=== PATIENT | male | born 1945 | race Caucasian/White ===

== ENCOUNTER 2017-01-18 17:38 | Emergency (ER) | payer MEDICARE, OTHER ==
[~2017-01-18] VITALS: Ht 172.7 cm; Wt 100.0 kg
[~2017-01-18 17:38] MED LIST: [UNRECOGNIZED DRUG - REMARK]
[2017-01-18 17:40] VITALS: Ht 172.7 cm; Wt 100.0 kg
--- OUTSIDE RECORDS SUMMARY | 2017-01-18 17:42 | XMS REPORT ---
Author Author Roxane Flores [facility] eClinicalWorks Address Unknown Phone Unavailable Care Team Providers Care Plastic Mould Maker Name Role Phone Roxane Flores CP Unavailable Allergies, Adverse Reactions, Alerts Substance Reaction Event Type N.K.D.A. Info Not Available Non Drug Allergy Problems Problem Type Condition Code Onset Dates Condition Status Problem Hypercholesterolemia 272.2 Active Problem Hypertension, benign 401.1 Active Problem Depressive disorder, not elsewhere classified 311 Active Problem Hypertension, benign 401.1 Active Assessment Frequency of micturition R35.0 Active Medications Medication Code System Code Instructions Start Date End Date Status Dosage Lisinopril-Hydrochlorothiazide [facility] [address]-38 20-12.5 MG Orally Once a day 1 tablet Fish Oil [facility] [address]-35 1000 MG Orally Once a day 4 capsule Citalopram Hydrobromide [facility] [address]-29 20 MG Orally Once a day May 03, 2015 1/2 tablet for a week then 1 tab Multivitamins [facility] [address]68 Orally as directed Doxazosin Mesylate [facility] [address]-67 1 MG Orally Once a day Sep 28, 2015 1 tablet Lovastatin [facility] [address]-75 20 MG Orally Once a day May 03, 2015 3 tablet with a meal Glucosamine [facility] [address]-77 500 MG Orally Twice every day 1 capsule with a meal Procedures Procedure Coding System Code Date PSA NO REFLEX CPT-4 52981 Sep 28, 2015 TSH CPT-4 98618 Sep 28, 2015 IH CMP CPT-4 41101 Sep 28, 2015 OFFICE VISIT, EST-LOW COMPLEXITY (15 MIN.) CPT-4 19258 Sep 28, 2015 [facility] visit Established Patient CPT-4 G0467 Sep 28, 2015 Vital Signs Date/Time: Sep 28, 2015 Height 69 in Weight 213.0 lbs Temperature 97.7 F Blood Pressure Diastolic 60 mm Hg Blood Pressure Systolic 134 mm Hg Cardiac Monitoring Heart Rate 72 /min BMI 31.45 Index Respiratory Rate 18 /min Results Name Result Date Reference Range Unit Abnormality Flag In House CMP ----Total Protein 7.1 20150928 6.4 - 8.1 G/DL ----Alkaline Phosphatase 67 [id number] 53 - 128 u/L ----Creatinine 1.1 20150928 0.6 - 1.2 mg/DL ----BUN 17 20150928 7 - 22 mg/DL ----Calcium 9.7 20150928 8.0 - 10.3 mg/DL ----Glucose 110 [id number] 73 - 118 mg/DL ----AST 35* 20150928 11 - 38 u/L ----ALT 51* 20150928 10 - 47 u/L ----Albumin 4.0 20150928 3.3 - 5.5 g/DL ----Total Bilirubin 0.9 20150928 0.2 - 1.6 mg/DL ----Sodium 138 20150928 128 - 145 mmol/L ----Potassium 4.8 20150928 3.6 - 5.1 mmol/L ----CO2 26 20150928 18 - 33 mmol/L ----Chloride 97* 20150928 98 - 108 mmol/L Summary Purpose eClinicalWorks Submission
--- OUTSIDE RECORDS SUMMARY | 2017-01-18 17:42 | XMS REPORT ---
Author Author Roxane Flores Organization eClinicalWorks Address Unknown Phone Unavailable Care Team Providers Care Library Services Assistant Name Role Phone Roxane Flores CP Unavailable Allergies No Known Allergies Problems Problem Type Condition Code Onset Dates Condition Status Problem Hypercholesterolemia 272.2 Active Problem Hypertension, benign 401.1 Active Problem Depressive disorder, not elsewhere classified 311 Active Problem Hypertension, benign 401.1 Active Assessment Frequency of micturition R35.0 Active Medications Medication Code System Code Instructions Start Date End Date Status Dosage Citalopram Hydrobromide [facility] [address]-61 20 MG Orally Once a day May 03, 2015 1/2 tablet for a week then 1 tab Fish Oil [facility] [address]-18 1000 MG Orally Once a day 4 capsule Doxazosin Mesylate [facility] [address]-87 1 MG Orally Once a day Sep 28, 2015 1 tablet Multivitamins [facility] [address] Orally as directed Glucosamine [facility] [address]-46 500 MG Orally Twice every day 1 capsule with a meal Lovastatin [facility] [address]-79 20 MG Orally Once a day May 03, 2015 3 tablet with a meal Lisinopril-Hydrochlorothiazide [facility] [address]-17 20-12.5 MG Orally Once a day 1 tablet Procedures Procedure Coding System Code Date URINALYSIS, IN HOUSE CPT-4 75191 Sep 29, 2015 URINE CULTURE CPT-4 36519 Sep 29, 2015 Results No Known Results Summary Purpose eClinicalWorks Submission
--- OUTSIDE RECORDS SUMMARY | 2017-01-18 17:42 | XMS REPORT ---
Author Author Henri Valdez Organization eClinicalWorks Address Unknown Phone Unavailable Care Team Providers Care It Sales Consultant Name Role Phone Henri Valdez CP Unavailable Allergies No Known Allergies Problems Problem Type Condition Code Onset Dates Condition Status Problem Depressive disorder, not elsewhere classified 311 Active Problem Hypercholesterolemia 272.2 Active Problem Essential (primary) hypertension I10 Active Assessment Encounter for dental examination and cleaning without abnormal findings Z01.20 Active Problem Hypertension, benign 401.1 Active Problem Hypertension, benign 401.1 Active Medications Medication Code System Code Instructions Start Date End Date Status Dosage Lovastatin [facility] 43478492514 20MG Orally Once a day 3 tablet with a meal Glucosamine [facility] [address]-67 500 MG Orally Twice every day 1 capsule with a meal Lisinopril [facility] [address]-27 5 MG Orally Once a day Jun 04, 2016 1 tablet Multivitamins [facility] [address] Orally as directed Fish Oil [facility] [address]-97 1000 MG Orally Once a day 4 capsule Citalopram Hydrobromide [facility] [address]-63 20 MG Orally Once a day May 03, 2015 1/2 tablet for a week then 1 tab Doxazosin Mesylate [facility] [address]-53 1 MG Orally Once a day Sep 28, 2015 1 tablet Citalopram Hydrobromide [facility] 91569262045 20MG Orally Once a day 1/ 2 tablet for a week then 1 tab Lovastatin [facility] [address]-14 20 MG Orally Once a day May 03, 2015 3 tablet with a meal Procedures Procedure Coding System Code Date PALLIATVE TX DENTAL PAIN-MINOR PROC CPT-4 D9110 Sep 03, 2016 LTD ORAL EVALUATION - PROBLEM FOCUS CPT-4 D0140 Sep 03, 2016 INTRAORL-PERIAPICAL 1 FILM 84744 CPT-4 D0220 Sep 03, 2016 Results No Known Results Summary Purpose eClinicalWorks Submission
--- OUTSIDE RECORDS SUMMARY | 2017-01-18 17:42 | XMS REPORT ---
Author Author Marva Gonzalez [facility] eClinicalWorks Address Unknown Phone Unavailable Care Team Providers Care Gyroscopic Instrument Mechanic Name Role Phone Marva Gonzalez CP Unavailable Allergies No Known Allergies Problems Problem Type Condition Code Onset Dates Condition Status Problem Depressive disorder, not elsewhere classified 311 Active Problem Hypercholesterolemia 272.2 Active Problem Essential (primary) hypertension I10 Active Assessment Elevated PSA R97.2 Active Problem Hypertension, benign 401.1 Active Problem Hypertension, benign 401.1 Active Medications Medication Code System Code Instructions Start Date End Date Status Dosage Doxazosin Mesylate [facility] [address]-41 1 MG Orally Once a day Sep 28, [address] [facility] [address] Orally as directed Glucosamine [facility] [address]-27 500 MG Orally Twice every day 1 capsule with a meal Lovastatin [facility] [address]-06 20 MG Orally Once a day May 03, 2015 3 tablet with a meal Lovastatin [facility] 75274190206 20MG Orally Once a day 3 tablet with a meal Lisinopril [facility] [address]-63 5 MG Orally Once a day Jun 04, 2016 1 tablet Fish Oil [facility] [address]-06 1000 MG Orally Once a day 4 capsule Citalopram Hydrobromide [facility] [address]-88 20 MG Orally Once a day May 03, 2015 1/2 tablet for a week then 1 tab Procedures Procedure Coding System Code Date PSA NO REFLEX CPT-4 54271 Jun 10, 2016 Results Name Result Date Reference Range Unit Abnormality Flag PSA ----PSA 7.4 [id number] 0.0-4.5 ng/mL H Summary Purpose eClinicalWorks Submission
--- OUTSIDE RECORDS SUMMARY | 2017-01-18 17:42 | XMS REPORT ---
Author Author Marva Gonzalez [facility] eClinicalWorks Address Unknown Phone Unavailable Care Team Providers Care Real Estate Portfolio Manager Name Role Phone Marva Gonzalez CP Unavailable Allergies No Known Allergies Problems Problem Type Condition ICD-9 Code Onset Dates Condition Status Problem Hypercholesterolemia 272.2 Active Problem Hypertension, benign 401.1 Active Problem Depressive disorder, not elsewhere classified 311 Active Assessment Hypercholesterolemia 272.2 Active Assessment Hypertension, benign 401.1 Active Problem Hypertension, benign 401.1 Active Assessment Depressive disorder, not elsewhere classified 311 Active Medications Medication Code System Code Instructions Start Date End Date Status Dosage Citalopram Hydrobromide [facility] [address]-97 20 MG Orally Once a day May 03, 2015 1/2 tablet for a week then 1 tab Lovastatin [facility] [address]-37 40 MG Orally Once a day May 03, 2015 1 tablet with a meal Glucosamine [facility] [address]-03 500 MG Orally Twice every day 1 capsule with a meal Fish Oil [facility] [address]-94 500 MG Orally Once a day 1 capsule Lisinopril-Hydrochlorothiazide [facility] [address]-55 20-12.5 MG Orally Once a day 1 tablet Multivitamins [facility] [address] Orally as directed Procedures Procedure Coding System Code Date TSH CPT-4 45211 May 03, 2015 COMPLETE CBC W/AUTO DIFF WBC CPT-4 43299 May 03, 2015 Results No Known Results Summary Purpose eClinicalWorks Submission
--- OUTSIDE RECORDS SUMMARY | 2017-01-18 17:42 | XMS REPORT ---
Author Author Marva Gonzalez Organization eClinicalWorks Address Unknown Phone Unavailable Care Team Providers Care Supervisor Shop Name Role Phone Marva Gonzalez CP Unavailable Allergies, Adverse Reactions, Alerts Substance Reaction Event Type N.K.D.A. Info Not Available Non Drug Allergy Problems Problem Type Condition ICD-9 Code Onset Dates Condition Status Problem Hypercholesterolemia 272.2 Active Problem Hypertension, benign 401.1 Active Problem Depressive disorder, not elsewhere classified 311 Active Assessment Hypercholesterolemia 272.2 Active Assessment Hypertension, benign 401.1 Active Problem Hypertension, benign 401.1 Active Assessment Depressive disorder, not elsewhere classified 311 Active Medications Medication Code System Code Instructions Start Date End Date Status Dosage Lovastatin [facility] [address]-82 40 MG Orally Once a day May 03, 2015 1 tablet with a meal Citalopram Hydrobromide [facility] [address]-91 20 MG Orally Once a day May 03, 2015 1/2 tablet for a week then 1 tab Fish Oil [facility] [address]-10 500 MG Orally Once a day 1 capsule Glucosamine [facility] [address]-94 500 MG Orally Twice every day 1 capsule with a meal Lisinopril-Hydrochlorothiazide [facility] [address]-77 20-12.5 MG Orally Once a day 1 tablet Multivitamins [facility] 63[address] Orally as directed Procedures Procedure Coding System Code Date OFFICE VISIT, EST-LOW COMPLEXITY (15 MIN.) CPT-4 27212 May 03, 2015 IH CMP CPT-4 97951 May 03, 2015 [facility] visit Established Patient CPT-4 G0467 May 03, 2015 IH LIPID PANEL CPT-4 00810 May 03, 2015 Vital Signs Date/Time: May 03, 2015 Height 69 in Weight 211.5 lbs Temperature 97.9 F Blood Pressure Diastolic 70 mm Hg Blood Pressure Systolic 140 mm Hg Cardiac Monitoring Heart Rate 60 /min BMI 31.23 Index Respiratory Rate 20 /min Results No Known Results Summary Purpose eClinicalWorks Submission
--- OUTSIDE RECORDS SUMMARY | 2017-01-18 17:42 | XMS REPORT | Continuity of Care Document ---
Author Author [facility] Organization [facility] Address Unknown Phone Unavailable Support Name Relationship Address Phone EVANS CARPIO Next Of Kin [address] [place] [address] Unavailable Insurance Providers Payer Name Policy Number Subscriber Name Relationship Auto A Insurance [id number] Ron Carpio 19 Self Medicare [id number] Ron Carpio 19 Self [employer] [facility] [id number] Ron Carpio 19 Self Problems No Known Problems or Medical conditions. Family History History Response Recorded Date/Time HX of Orthopedic Surgeries Y "head surgery" from old [facility] 05/16/13 4:04am Hx Abdominal Surgery Y appy 05/16/13 4:04am HX Cerebrovascular Accident N 05/16/13 4:04am Hx Seizures N 05/16/13 4:04am Hx Congestive Heart Failure N 05/16/13 4:04am Hx Heart Attack N 05/16/13 4:04am Hx Hypertension Y 05/16/13 4:04am Hx Chronic Obstructive Pulmonary Disease (COPD) N 05/16/13 4:04am Hx Diabetes N 05/16/13 4:04am Hx Cancer N 05/16/13 4:04am Hx MRSA N 05/16/13 4:04am HX of Cardiac Surgeries N 05/16/13 4:04am HX of Reproductive Surgeries N 05/16/13 4:04am HX of Endocrine Surgeries N 05/16/13 4:04am HX of Throat Surgery Y 05/16/13 4:04am HX of Neurological Surgeries N 05/16/13 4:04am HX of Genitourinary Surgeries N 05/16/13 4:04am Social History History Response Recorded Date/Time Smoking Status Current every day smoker 05/16/13 4:04am Hx Alcohol Use Y 05/16/13 2:27am Has the pt used tobacco in the last 12 months Y 05/16/13 4:04am Allergies, Adverse Reactions, Alerts Allergen Type Severity Reaction Last Updated No Known Allergies 05/15/13 Medications Medication Dose Units Route Sig Qty Days [Unable To Do] Immunizations Name Given Type Hx Influenza Vaccination Y oct or nov of this year H Hx Pneumococcal Vaccination N H Response Recorded Date/Time Status not known Unknown Results No Known Relevant Diagnostic Tests, Laboratory Data and/or Discharge Summary. Encounters Encounter Location Date/Time Discharged Inpatient [facility] 05/16/13 2:52am
--- OUTSIDE RECORDS SUMMARY | 2017-01-18 17:42 | XMS REPORT ---
Author Author Marva Gonzalez [facility] eClinicalWorks Address Unknown Phone Unavailable Care Team Providers Care Patient Service Associate Name Role Phone Marva Gonzalez CP Unavailable Allergies No Known Allergies Problems Problem Type Condition Code Onset Dates Condition Status Problem Hypercholesterolemia 272.2 Active Problem Hypertension, benign 401.1 Active Problem Depressive disorder, not elsewhere classified 311 Active Problem Hypertension, benign 401.1 Active Medications No Known Medications Results No Known Results Summary Purpose eClinicalWorks Submission
--- OUTSIDE RECORDS SUMMARY | 2017-01-18 17:42 | XMS REPORT ---
Author Author Marva Gonzalez [facility] eClinicalWorks Address Unknown Phone Unavailable Care Team Providers Care Commercial Loan Reviewer Name Role Phone Marva Gonzalez CP Unavailable Allergies No Known Allergies Problems Problem Type Condition Code Onset Dates Condition Status Problem Hypercholesterolemia 272.2 Active Problem Hypertension, benign 401.1 Active Problem Depressive disorder, not elsewhere classified 311 Active Problem Hypertension, benign 401.1 Active Assessment Hypertension, benign 401.1 Active Medications Medication Code System Code Instructions Start Date End Date Status Dosage Lisinopril-Hydrochlorothiazide [facility] [address]-34 20-12.5 MG Orally Once a day *NEEDS APPT BEFORE NEXT REFILL* 1 tablet Results No Known Results Summary Purpose eClinicalWorks Submission
--- OUTSIDE RECORDS SUMMARY | 2017-01-18 17:43 | XMS REPORT ---
Author Author Marva Gonzalez Organization eClinicalWorks Address Unknown Phone Unavailable Care Team Providers Care Paint Prep Technician Name Role Phone Marva Gonzalez CP Unavailable Allergies, Adverse Reactions, Alerts Substance Reaction Event Type N.K.D.A. Info Not Available Non Drug Allergy Problems Problem Type Condition Code Onset Dates Condition Status Assessment Elevated PSA R97.2 Active Problem Depressive disorder, not elsewhere classified 311 Active Problem Hypercholesterolemia 272.2 Active Problem Essential (primary) hypertension I10 Active Assessment Essential (primary) hypertension I10 Active Assessment Dizziness R42 Active Problem Hypertension, benign 401.1 Active Problem Hypertension, benign 401.1 Active Medications Medication Code System Code Instructions Start Date End Date Status Dosage Doxazosin Mesylate [facility] [address]-00 1 MG Orally Once a day Sep 28, 2015 1 tablet Lovastatin [facility] [address]-59 20 MG Orally Once a day May 03, 2015 3 tablet with a meal Lisinopril [facility] [address]-22 5 MG Orally Once a day Jun 04, 2016 1 tablet Glucosamine [facility] [address]-84 500 MG Orally Twice every day 1 capsule with a meal Fish Oil [facility] [address]-64 1000 MG Orally Once a day 4 capsule Citalopram Hydrobromide [facility] [address]-41 20 MG Orally Once a day May 03, 2015 1/2 tablet for a week then 1 tab Multivitamins [facility] [address] Orally as directed Procedures Procedure Coding System Code Date OFFICE VISIT, EST-LOW COMPLEXITY (15 MIN.) CPT-4 58165 Jun 10, 2016 [facility] visit Established Patient CPT-4 G0467 Jun 10, 2016 Vital Signs Date/Time: Jun 10, 2016 Temperature 98.1 F Height 69 in Weight 209.0 lbs Blood Pressure Diastolic 66 mm Hg Blood Pressure Systolic 138 mm Hg Cardiac Monitoring Heart Rate 65 /min BMI 30.86 Index Oximetry 97 % Respiratory Rate 18 /min Results No Known Results Summary Purpose eClinicalWorks Submission
--- OUTSIDE RECORDS SUMMARY | 2017-01-18 17:43 | XMS REPORT ---
Author Author Marva Gonzalez [facility] eClinicalWorks Address Unknown Phone Unavailable Care Team Providers Care Cigar Binder Name Role Phone Marva Gonzalez CP Unavailable Allergies No Known Allergies Problems Problem Type Condition ICD-9 Code Onset Dates Condition Status Problem Hypercholesterolemia 272.2 Active Problem Hypertension, benign 401.1 Active Problem Depressive disorder, not elsewhere classified 311 Active Problem Hypertension, benign 401.1 Active Medications Medication Code System Code Instructions Start Date End Date Status Dosage Fish Oil [facility] [address]-53 1000 MG Orally Once a day 4 capsule Lovastatin [facility] [address]-65 20 MG Orally Once a day May 03, 2015 3 tablet with a meal Results No Known Results Summary Purpose eClinicalWorks Submission
--- OUTSIDE RECORDS SUMMARY | 2017-01-18 17:43 | XMS REPORT ---
Author Author Marva Gonzalez [facility] eClinicalWorks Address Unknown Phone Unavailable Care Team Providers Care Power Wood Sawyer Name Role Phone Marva Gonzalez CP Unavailable Allergies No Known Allergies Problems Problem Type Condition Code Onset Dates Condition Status Problem Depressive disorder, not elsewhere classified 311 Active Problem Hypercholesterolemia 272.2 Active Problem Essential (primary) hypertension I10 Active Assessment Essential (primary) hypertension I10 Active Problem Hypertension, benign 401.1 Active Problem Hypertension, benign 401.1 Active Medications Medication Code System Code Instructions Start Date End Date Status Dosage Lisinopril [facility] [address]-71 5 MG Orally Once a day Jun 04, 2016 1 tablet Results No Known Results Summary Purpose eClinicalWorks Submission
--- OUTSIDE RECORDS SUMMARY | 2017-01-18 17:43 | XMS REPORT ---
Author Author Marva Gonzalez Organization eClinicalWorks Address Unknown Phone Unavailable Care Team Providers Care Surgical Consultant Name Role Phone Marva Gonzalez CP Unavailable Allergies No Known Allergies Problems Problem Type Condition Code Onset Dates Condition Status Problem Hypercholesterolemia 272.2 Active Problem Hypertension, benign 401.1 Active Problem Depressive disorder, not elsewhere classified 311 Active Problem Hypertension, benign 401.1 Active Assessment Essential (primary) hypertension I10 Active Medications Medication Code System Code Instructions Start Date End Date Status Dosage Citalopram Hydrobromide [facility] [address]-14 20 MG Orally Once a day May 03, 2015 1/2 tablet for a week then 1 tab Doxazosin Mesylate [facility] [address]-13 1 MG Orally Once a day Sep 28, 2015 1 tablet Fish Oil [facility] [address]-14 1000 MG Orally Once a day 4 capsule Lovastatin [facility] [address]-83 20 MG Orally Once a day May 03, 2015 3 tablet with a meal Lovastatin [facility] 61411314404 20MG Orally Once a day 3 tablet with a meal Glucosamine [facility] [address]-52 500 MG Orally Twice every day 1 capsule with a meal Multivitamins [facility] [address] Orally as directed Lisinopril [facility] [address]-60 5 MG Orally Once a day Jun 04, 2016 1 tablet Procedures Procedure Coding System Code Date DUMMY CODE FOR NURSE VISIT CPT-4 DUMMY Jun 04, 2016 Vital Signs Date/Time: Jun 04, 2016 Blood Pressure Diastolic 70 mm Hg Blood Pressure Systolic 144 mm Hg Height 69 in Results No Known Results Summary Purpose eClinicalWorks Submission
--- OUTSIDE RECORDS SUMMARY | 2017-01-18 17:43 | XMS REPORT ---
Author Author Marva Gonzalez [facility] eClinicalWorks Address Unknown Phone Unavailable Care Team Providers Care Congressional Representative Name Role Phone Marva Gonzalez CP Unavailable Allergies No Known Allergies Problems Problem Type Condition Code Onset Dates Condition Status Problem Hypercholesterolemia 272.2 Active Problem Hypertension, benign 401.1 Active Problem Depressive disorder, not elsewhere classified 311 Active Assessment Dizziness R42 Active Assessment Hypotension, unspecified hypotension type I95.9 Active Problem Hypertension, benign 401.1 Active Assessment Syncope, unspecified syncope type R55 Active Medications Medication Code System Code Instructions Start Date End Date Status Dosage Doxazosin Mesylate [facility] [address]-72 1 MG Orally Once a day Sep 28, 2015 1 tablet Citalopram Hydrobromide [facility] [address]-24 20 MG Orally Once a day May 03, 2015 1/2 tablet for a week then 1 tab [address] [facility] [address] Orally as directed Glucosamine [facility] [address]-12 500 MG Orally Twice every day 1 capsule with a meal Lovastatin [facility] [address]-83 20 MG Orally Once a day May 03, 2015 3 tablet with a meal Lisinopril-Hydrochlorothiazide [facility] [address]-18 20-12.5 MG Orally Once a day *NEEDS APPT BEFORE NEXT REFILL* 1 tablet Fish Oil [facility] [address]-99 1000 MG Orally Once a day 4 capsule Procedures Procedure Coding System Code Date COMPREHENSIVE METABOLIC PANEL CPT-4 85625 May 13, 2016 TSH CPT-4 38931 May 13, 2016 COMPLETE CBC W/AUTO DIFF WBC CPT-4 69908 May 13, 2016 URINALYSIS, IN HOUSE CPT-4 93189 May 13, 2016 Results Name Result Date Reference Range Unit Abnormality Flag TSH ----TSH 0.91 [id number] 0.35-4.94 uIU/mL eGFR ----eGFR >60 [id number] >60 mL/min CBC With Platelet and Differential ----Absolute Eosinophils 0.09 74164082 0.00-0.50 10*3 ----Absolute Monocytes 0.42 35426894 0.30-1.00 10*3 ----Neutrophils 67 48123089 51-75 % ----Absolute Basophils 0.03 19404218 0.00-0.20 10*3 ----MPV 11.7 44394997 8.8-14.8 fL ----Monocytes 7 60902581 4-11 % ----RDW 12.7 80071041 11.5-14.5 % ----Lymphocytes 24 57810815 20-46 % ----MCHC 35.7 86567510 32.0-36.0 g/dL ----MCH 34.0 13039465 27.0-32.0 pg H ----MCV 95.1 46867193 82.0-99.0 fL ----Immature Granulocytes 0.0 89513761 0.0-1.0 % ----Platelet Count 166 07892702 150-400 K/uL ----Absolute Lymphocytes 1.54 22906080 0.80-3.30 10*3 ----Absolute Neutrophils 4.25 33118712 1.90-7.00 10*3 ----Eosinophils 1 26738425 0-4 % ----Basophils 1 04757907 0-2 % ----WBC 6.3 23634866 4.8-10.8 K/uL ----RBC 4.71 11176729 4.60-6.20 10*6/uL ----HGB 16.0 10240105 14.0-18.0 g/dL ----HCT 44.8 55721105 42.0-52.0 % Comprehensive Metabolic Panel (CMP) ----Chloride 104 10470627 99-111 mEq/L ----Potassium 4.7 84586065 3.5-5.2 mEq/L ----Albumin 4.3 93703172 3.4-4.8 g/dL ----CO2 24 13035770 23-31 mEq/L ----Alkaline Phosphatase 77 72039755 40-150 U/L ----Protein 6.5 34077789 6.0-7.6 g/dL ----Bilirubin Total 0.7 38191006 0.2-1.2 mg/dL ----Anion Gap 10 20160513 3-20 ----Calcium 9.8 90535175 8.9-10.5 mg/dL ----Globulin 2.2 20160513 1.8-4.0 g/dL ----Sodium 138 20160513 135-144 mEq/L ----BUN 14 20160513 8-26 mg/dL ----ALT (SGPT) 47 20160513 0-55 U/L ----AST (SGOT) 34 20160513 5-34 U/L ----Creatinine 0.86 20160513 0.72-1.25 mg/dL ----Glucose 112 17283570 70-99 mg/dL H Summary Purpose eClinicalWorks Submission
--- OUTSIDE RECORDS SUMMARY | 2017-01-18 17:43 | XMS REPORT ---
Author Author Marva Gonzalez [facility] eClinicalWorks Address Unknown Phone Unavailable Care Team Providers Care International Marketing Specialist Name Role Phone Marva Gonzalez CP Unavailable Allergies No Known Allergies Problems Problem Type Condition Code Onset Dates Condition Status Problem Depressive disorder, not elsewhere classified 311 Active Problem Hypercholesterolemia 272.2 Active Problem Essential (primary) hypertension I10 Active Problem Hypertension, benign 401.1 Active Problem Hypertension, benign 401.1 Active Medications No Known Medications Results No Known Results Summary Purpose eClinicalWorks Submission
[2017-01-18] MEDS ORDERED: LOVA20TA3 PO (18:00)
[2017-01-18] MEDS ORDERED: LISI-625 PO (18:00)
[2017-01-18] MEDS ORDERED: DOXA1TAB2 PO (18:02)
[2017-01-18] MEDS ORDERED: CITA20TA9 PO (18:02)
[2017-01-18] MEDS ORDERED: MULT-587 PO (18:03)
[2017-01-18] MEDS ORDERED: GLUC100015 PO (18:03)
[2017-01-18] MEDS ORDERED: FISH1CAP10 PO (18:04)
--- OUTSIDE RECORDS SUMMARY | 2017-01-18 18:17 | XMS REPORT | Continuity of Care Document ---
Author Author [facility] Organization [facility] Address Unknown Phone Unavailable Support Name Relationship Address Phone EVANS CARPIO Next Of Kin [address] [place] [address] Unavailable Insurance Providers Payer Name Policy Number Subscriber Name Relationship Auto A Insurance [id number] Ron Carpio 19 Self Medicare [id number] Ron Carpio 19 Self [facility] [id number] Ron Carpio 19 Self Problems No Known [...] Summary. Encounters Encounter Location Date/Time Discharged Inpatient [facility] 05/16/13 2:52am
--- NOTE | 2017-01-18 18:28 | ERPDOC ---
Departure Disposition Decision Date: Jan 18, 2017 Disposition Decision Time: 20:37 Disposition: 01 DISCHARGED HOME, SELF-CARE Impression Impression Impression: Primary Impression: Scalp laceration Encounter type: initial encounter Qualified Codes: S01.01XA - Laceration without foreign body of scalp, initial encounter Additional Impressions: Abrasion Alcohol intoxication Complication of substance-induced condition: uncomplicated Qualified Codes: F10.120 - Alcohol abuse with intoxication, uncomplicated Severity: Moderate Condition: Improved Seen By: Physician only Referrals: YOUR PHYSICIAN 1 Week Patient Instructions: Concussion (ED), Laceration (ED) Problems/Meds/Labs Reviewed?: Yes Medications reviewed and manag: Yes Additional Instructions: We have repaired your cuts. Keep the cuts clean with soap and water and covered. Use triple antibiotic ointment to keep from getting infected. Take the antibiotics as prescribed. Follow up with your doctor to have your sutures removed in 7-10 days. Keep your scrape clean and covered with vaseline to help with pain and healing. Take naproxen as needed for headaches. Follow up with your doctor. Follow up care ordered?: Yes Mental Status: Alert, Oriented Scripts Clindamycin HCl (Clindamycin HCl) 150 Mg Capsule 1 CAP PO QID for 7 Days, #28 CAP TAKE WITH A FULL GLASS OF WATER TO AVOID ESOPHAGEAL IRRITATION. Prov: FEBRUARYDIANN DO 01/18/17 HPI - Fall/Injury General Chief Complaint: Head Injury Stated Complaint: FALL/ HEAD INJURY Time Seen by Provider: 18:01 Source: patient, family Exam Limitations: no limitations HPI - Fall/Injury Initial Comments 71yo [facility] and arm [facility]. Pt is a chronic, daily drinker. He yelled tonight; found him down with two scalp lacs and an arm abrasion. Pts head hit a scalloped, concrete border of their flower bed. Pt was found half in/half out of the flower bed. Pt is grossly intoxicated. Occurred At: home Onset: Rapid Duration: 1-3 hrs Pain Scale: Now & Worst: 0/10 Severity: mild Injuries/Pain Location: head, upper extremity 1 - Avulsion 2 - Avulsion Context: lost balance Loss of Consciousness: no loss of consciousness Modifying Factors: IMPROVES WITH: cold therapy, immobilization, rest, WORSE WITH: jarring, movement Associated Symptoms: denies symptoms Hx of Similar Symptoms: Yes Allergies: Coded Allergies: No Known Allergies (Unverified , 01/18/17) Past History Past Medical History Metabolic: hypercholesterolemia, hypertension Surgical History General: appendix, tonsils Vaccines Hx Influenza Vaccination: Yes (oct or nov of this year) Hx Pneumococcal Vaccination: No Review of Systems Musculoskeletal General: pain, see HPI Integumentary Skin: lesion (Laceration x2) Neurological General: headache Psychiatric Comments Acutely intoxicated All other Systems All Other Systems: Reviewed and Negative Physical Exam General General Nourishment: well nourished, well developed, appears stated age, no acute distress, adult, obese General Body Habitus: disheveled Vitals and Pain First Documented Vital Signs Date Time Temp Pulse Resp B/P Pulse Ox O2 Delivery O2 Flow Rate FiO2 01/18/17 17:40 98.3 58 15 146/67 96 Room Air Weight: Kilograms: 100.000 Height (feet): 5 Height (inches): 8.00 Triage Pain Scale: RN VS reviewed by Provider: Yes Normal Exams: Eyes: Pupils are PERRLA w/ EOMI, No scleral icterus, irritation ENMT: No facial trauma, nasal exudates, pharyngeal erythema Lymphatic: No lymphadenopathy Integumentary: No rashes, hives, or bruising noted Neurologic: Patient is alert, and oriented Psychiatric: Patient exhibits, appropriate attention Integumentary (brief) Comments Lacerations along forehead as described. Mild abrasion (2x5cm along posterolateral right forearm). Procedures Procedures Performed Procedures Performed: Laceration Repair Laceration/Wound Repair Wound/Laceration Repair #1: Wound Location: head Wound Length (cm): 2.5 Depth, Shape: linear Explored: contaminated Irrigated: saline Prep: chlorasept Anesthesia: 1% Lidocaine c Epi Volume Anesthetic (ccs): 3 Type of Block: local Wound Debrided: moderate Wound Revision?: No Repaired With: Sutures Suture Size: 4:0 Suture Type: ethilon Number of Sutures: 5 Layer Closure?: No Sterile Dressing Applied?: Yes Splint Applied?: No Sling Applied?: No Wound/Laceration Repair #2: Wound Location: head Wound Length (cm): 3 Depth, Shape: tissue avulsed Explored: contaminated Irrigated: saline Prep: chlorasept Anesthesia: 1% Lidocaine c Epi Volume Anesthetic (ccs): 4 Type of Block: local Wound Debrided: moderate Wound Revision?: No Repaired With: Sutures Suture Size: 4:0 Suture Type: ethilon Number of Sutures: 4 Layer Closure?: No Sterile Dressing Applied?: Yes Splint Applied?: No Sling Applied?: No Progress Results/Orders Orders Procedure Category Date Status Time Cbc W/Auto LAB 01/18/17 Complete Diff-Reflex Manual 18:24 Cmp - Comprehensive LAB 01/18/17 Complete Metabolic 18:24 Ua, Dip Wreflex LAB 01/18/17 Logged [facility] Primary Care Nurse Practitioner 18:24 INR LAB 01/18/17 Complete 18:24 PTT LAB 01/18/17 Complete 18:24 Lipase LAB 01/18/17 Complete 18:24 Ct Head W/O Contrast CT 01/18/17 Taken 18:24 Ct Cervical Spine W/O CT 01/18/17 Taken Contrast 18:24 Iv Lock (Ed Only) EDM 01/18/17 Transmitted 18:24 Troponin I W LAB 01/18/17 Complete Hemolysis Index 18:24 Probnp LAB 01/18/17 Complete 18:24 Prolactin LAB 01/18/17 Complete 18:24 Ondansetron Inj PHA 01/18/17 Complete (Zofran) 18:30 Morphine Sulfate PHA 01/18/17 Complete (Morphine) 19:00 Clindamycin 600mg PHA 01/18/17 Complete Ivpb (Cleocin 600 Mg I 19:00 Normal Saline (Normal PHA 01/18/17 Complete Saline Iv) 19:00 Lidocaine 1% / Epi PHA 01/18/17 Complete 1:100,000 (Xylocaine 20:15 Neomycin/Polymyxin/Bacitracin PHA 01/18/17 Complete (Neosporin 21:15 Lab Results Laboratory Tests Test 01/18/17 18:44 White Blood Count 7.0T/MM3 Red Blood Count 5.01M/MM3 Hemoglobin 16.6GM/DL Hematocrit 48.5% Mean Corpuscular Volume 96.8UM3 Mean Corpuscular Hemoglobin 33.1UUG Mean Corpuscular Hemoglobin Concent 34.2GM/DL RDW Standard Deviation 48.3FL Platelet Count 163T/MM3 Mean Platelet Volume 10.6UM3 Immature Granulocyte % (Auto) 0.1% Neutrophils (%) (Auto) 75.6% Lymphocytes (%) (Auto) 19.9% Monocytes (%) (Auto) 3.4% Eosinophils (%) (Auto) 0.6% Basophils (%) (Auto) 0.4% Absolute Immature Granulocyte (auto 0.01T/MM3 Absolute Neutrophils (auto) 5.3T/MM3 Absolute Lymphocytes (auto) 1.4T/MM3 Absolute Monocytes (auto) 0.2T/MM3 Absolute Eosinophils (auto) 0.0T/MM3 Absolute Basophils (auto) 0.0T/MM3 Prothromb Time International Ratio 0.98 Activated Partial Thromboplast Time 34.7SEC Turbidity < 20 Sodium Level 147MEQ/L Potassium Level 4.4MEQ/L Chloride Level 106MEQ/L Carbon Dioxide Level 21MEQ/L Anion Gap 20MEQ/L Blood Urea Nitrogen 16.0MG/DL Creatinine 0.9MG/DL Glomerular Filtration Rate Calc 83 BUN/Creatinine Ratio 18RATIO Glucose Level 78MG/DL Calculated Osmolality 282MOSM/KG Calcium Level 9.6MG/DL Total Bilirubin 0.90MG/DL Icterus Index < 2 Aspartate Amino Transf (AST/SGOT) 67U/L Alanine Aminotransferase (ALT/SGPT) 73U/L Alkaline Phosphatase 83U/L Troponin I < 0.012ng/ml ZL-Cnm-P-Type Natriuretic Peptide 101PG/ML Total Protein 7.5G/DL Albumin 4.5G/DL Globulin 3.0G/DL Albumin/Globulin Ratio 1.5RATIO Lipase 92U/L Prolactin 11.0NG/ML Chemistry Specimen Hemolysis < 15 Medications Current ED Medications Ondansetron HCl (Zofran) 4 mg O ONCE IV Last administered on 01/18/17 18:44; Start 01/18/17 at 18:30; Stop 01/18/17 at 18:31; Status DC Morphine Sulfate 2 mg 2 mg O ONCE IV Last administered on 01/18/17 19:40; Start 01/18/17 at 19:00; Stop 01/18/17 at 19:01; Status DC Clindamycin HCl/ Dextrose 50 ml @ 100 mls/hr O ONCE IV Last administered on 20:08; Start 01/18/17 at 19:00; Stop 01/18/17 at 19:29; Status DC Sodium Chloride (Normal Saline IV) 1,000 ml @ 0 mls/hr Q0M ONCE IV Last administered on 01/18/17 19:39; Start 01/18/17 at 19:00; Stop 01/18/17 at 19:01; Status DC Lidocaine/ Epinephrine (Xylocaine 1%/ Epi 1:100,000) 20 ml O ONCE SQ ; Start at 20:15; Stop 01/18/17 at 20:16; Status DC Neomycin/ Polymyxin/ Bacitracin (Neosporin) 2 applic O ONCE TOP ; Start at 21:15; Stop 01/18/17 at 21:16; Status DC Progress Progress No significant findings on rads or labs. Lacerations repaired as described. Discussed appropriate care and removal of sutures. 5 min of counseling regarding alcohol abuse/dependence. Pt voiced understanding of need to cut back/ cease alcohol and how to care for sutures/abrasion. F/u with PCM. Will cover with clinda for likely clostridium exposure. CT CT #1: CT: Head no contrast Interpretation: Abnormal (Age-related changes; old encephalomalacia; no bony pathology), Reviewed Written Report CT #2: CT: C-Spine no contrast Interpretation: Abnormal (Spondylitic changes; no acute CT pathology) DIANN ESCAMILLA DO Jan 18, 2017 18:28
[2017-01-18] MEDS ORDERED: ONDANSETRON 4mg/2ml INJECTION IV ONE (18:30)
--- NOTE | 2017-01-18 18:42 | NUR ---
PT TO CT
[2017-01-18 18:50] LABS: BASOPHILS % (AUTO) 0.4 % (0-2); EOSINOPHILS % (AUTO) 0.6 % (0-4); HCT - HEMATOCRIT 48.5 % (41-53); HGB - HEMOGLOBIN 16.6 GM/DL (13.5-17.5); IMMATURE GRANULOCYTE # (AUTO) 0.01 T/MM3 (0.00-0.03); IMMATURE GRANULOCYTE % (AUTO) 0.1 % (0.0-0.5); LYMPHOCYTES # (AUTO) 1.4 T/MM3 (1-4.8); LYMPHOCYTES % (AUTO) 19.9 % (23-45); MEAN CORPUSCULAR HGB 33.1 UUG (26-34); MEAN CORPUSCULAR HGB CONC(MCHC 34.2 GM/DL (31-37); MEAN CORPUSCULAR VOLUME 96.8 UM3 (80-100); MEAN PLATELET VOLUME 10.6 UM3 (9.4-12.4); MONOCYTES # (AUTO) 0.2 T/MM3 (0-0.8); MONOCYTES % (AUTO) 3.4 % (0-9.0); NEUTROPHILS #(AUTO)-ABSOLUTE 5.3 T/MM3 (1.8-7.7); NEUTROPHILS % (AUTO) 75.6 % (33-66); RED BLOOD COUNT 5.01 M/MM3 (4.50-5.90)
--- NOTE | 2017-01-18 18:54 | NUR ---
PT RETURN FROM CT
[2017-01-18 18:59] LABS: INR 0.98 (0.76-1.04); PROTHROMBIN TIME 10.7 SEC (9.31-12.49); PTT 34.7 SEC (24-36)
[2017-01-18] MEDS ORDERED: MORPHINE SULFATE 2 MG SYRINGE IV ONE (19:00)
[2017-01-18] MEDS ORDERED: NORMAL SALINE 1,000 ML IV ONE (19:00)
[2017-01-18] MEDS ORDERED: CLINDAMYCIN 600mg IVPB 50 ML IV ONE (19:00)
[2017-01-18 19:01] LABS: ALBUMIN 4.5 G/DL (3.5-5.0); ALBUMIN/GLOBULIN RATIO 1.5 RATIO (1.1-2.2); ALKALINE PHOSPHATASE 83 U/L (38-126); ALT (SGPT) 73 U/L (21-72); AST (SGOT) 67 U/L (17-59); BUN/CREATININE RATIO 18 RATIO (6-26); CALCIUM 9.6 MG/DL (8.4-10.2); CO2 - CARBON DIOXIDE 21 MEQ/L (22-30); CREATININE 0.9 MG/DL (0.8-1.5); GLOMERULAR FILTRATION RATE 83; GLUCOSE 78 MG/DL (75-110); TOTAL PROTEIN 7.5 G/DL (6.3-8.2)
[2017-01-18 19:13] LABS: ANION GAP 20 MEQ/L (5-15); CHLORIDE 106 MEQ/L (98-107); LIPASE 92 U/L (23-300); POTASSIUM 4.4 MEQ/L (3.6-5); PROBNP 101 PG/ML (0-175); SODIUM 147 MEQ/L (134-144)
[2017-01-18] MEDS ORDERED: LIDOCAINE 1%/EPI 1:100,000 20ml MDV SQ ONE (20:15)
--- NOTE | 2017-01-18 20:15 | NUR ---
PROVIDER AT BEDSIDE FOR SUTURE PLACEMENT.
[2017-01-18] MEDS ORDERED: CLIN-89 PO (20:41)
[2017-01-18] MEDS ORDERED: NEOMYCIN/POLYM/BACITR OINT PACKET TOP ONE (21:15)
[2017-01-18 21:20] VITALS: BP 117/54; PULSE 72; RESP 18; TEMP 98.3; O2SAT 93
--- NOTE | 2017-01-18 21:20 | NUR ---
DEPART PT GIVEN DI FOR LACERATION, CONCUSSION, CLINDAMYCIN, F/U. RX FOR CLINDAMYCIN PROVIDED. PT VERBALIZES UNDERSTANDING OF DI. QUESTIONS ASKED/ANSWERED - DENIES FURTHER QUESTIONS/NEEDS AT THIS TIME. PT STATE PAIN IMPROVING. IV SITE REMOVED. PERSONAL BELONGINGS GATHERED. DRESSINGS APPLIED TO HEAD AND RIGHT ARM - CLEAN/DRY/INTACT/APPROPRIATE. PT AMBULATED/ESCORTED TO ED EXIT - GAIT STABLE, NO SIGN OF DISTRESS.
--- NOTE | 2017-01-19 08:55 | DI ---
Indication: ITS.REASON: Fall; intoxicated PROCEDURE: CT CERVICAL SPINE W/O CONTRAST: Encounter: Initial Comparison: None Technique: Axial CT images through the cervical spine were performed without contrast. Coronal and sagittal reformatted images were also obtained. Automated Exposure Control and Iterative Reconstruction dose reducing techniques were utilized. FINDINGS: The alignment of the cervical spine is straightened which could be positional or due to muscular spasm/strain. Multilevel degenerative changes are present. There is no evidence of acute fracture or subluxation of the cervical spine. The atlantoaxial articulation, dens, and upper cervical spine demonstrate no subluxation. The paraspinal soft tissues and spinal canal appear unremarkable. IMPRESSION: No acute traumatic abnormality of the cervical spine. There is a preliminary report by [facility]. .
--- NOTE | 2017-01-19 08:58 | DI ---
Indication: ITS.REASON: Fall; intoxicated PROCEDURE: CT HEAD W/O CONTRAST: Encounter: Initial Comparison: May 15, 2013 Technique: Axial CT images through the head were performed without contrast. Iterative Reconstruction dose reducing technique was utilized. FINDINGS: Mild to moderate generalized atrophy. 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 Prior postsurgical changes from frontal craniotomy and surgical changes around the orbits. The ventricles are stable. There is no evidence of acute intracranial hemorrhage, midline displacement, or mass effect. There are scattered areas of low attenuation in the white matter which most likely represent changes of chronic microvascular ischemia. The CT attenuation of the brain parenchyma is otherwise normal within the cerebellum, brain stem, and cerebral hemispheres. The tympanic cavities and mastoid air cells are free of appreciable disease. There are no definite acute fractures of the skull base, calvarium, or visualized portion of the midface. IMPRESSION: No CT evidence of acute traumatic intracranial injury. There is a preliminary report by [facility]. .
== END 2017-01-18 21:20 | disposition home or self-care (01) ==
LOC: ED 17:38
DX: S01.01XA Laceration without foreign body of scalp, initial encounter (principal); S01.81XA Laceration without foreign body of other part of head, initial encounter; S50.811A Abrasion of right forearm, initial encounter; F10.120 Alcohol abuse with intoxication, uncomplicated; Y90.9 Presence of alcohol in blood, level not specified; Z79.899 Other long term (current) drug therapy; W01.198A Fall on same level from slipping, tripping and stumbling with subsequent striking against other object, initial encounter; Y93.89 Activity, other specified; Y92.009 Unspecified place in unspecified non-institutional (private) residence as the place of occurrence of the external cause; Y99.8 Other external cause status
CPT/HCPCS: 12002; 12011; 70450; 72125; 80053; 83690; 83880; 84146; 84484; 85025; 85610; 85730; 96365; 96375; 99284; A9270; J2405; J7030; L0150